=== PATIENT | male | born 1955 | race Caucasian/White ===

== ENCOUNTER → 2017-02-06 | Outpatient (CLI) | payer BC ==
[2017-02-06 17:30] LABS: CH 30.7; CHCM 34.1; HCT 42.2 % (39.0-53.0); HDW 2.76; HGB 14.6 gm/dL (13.0-17.5); MCH 31.3 pg (25.0-35.0); MCHC 34.5 g/dL (31.0-37.0); MCV 90.5 fL (80.0-100.0); Mean Platelet Volume 7.3; RBC 4.67 m/uL (4.30-5.90); WBC 5.1 k/uL (3.8-10.6)
[2017-02-06 19:30] LABS: Erythrocyte Sedimentation Rate 15 mm/hr (0-15)
== END ==
LOC: LABWHC1 16:48
DX: K51.30 Ulcerative (chronic) rectosigmoiditis without complications (principal)
CPT/HCPCS: 36415; 85027; 85652; 86140

== ENCOUNTER → 2017-06-01 | Outpatient (CLI) | payer BC ==
--- NOTE | 2017-06-01 12:04 | EST ---
DATE OF SERVICE: 06/01/2017 TYPE OF REPORT: Stress Cardiolite Scan INDICATION: Tachycardia. BASELINE HEART RATE: 76 BASELINE BLOOD PRESSURE: 124/88 MAXIMUM HEART RATE: 132 MAXIMUM BLOOD PRESSURE: 207/63 85% MPHR: 133 100% MPHR:157 METS: 9.3 MAX STAGE REACHED: III TOTAL EXERCISE TIME: 9 minutes Baseline EKG revealed sinus mechanism with nonspecific ST-T changes and isolated ventricular ectopy. Patient walked for 9 minutes on a standard Kenny protocol. Resting heart rate was 76 beats per minute and peak heart rate was 132 beats per minute, which is almost 85% of predicted maximal. Patient developed fatigue and shortness of breath, but did not have any angina or erythema. EKG did not reveal any ST segment changes to indicate ischemia. However, at peak exercise his blood pressure was 207/63. Isolated PVCs were noted and also a ventricular couplet was noted unassociated with any angina. By EKG criteria, this is a negative stress test with fair exercise capacity and patient achieved almost 85% of predicted maximal. There were minor resting EKG changes to begin with, but overall no ischemic changes were noted at peak exercise. The nuclear scan results, which are more pertinent, will be reported by the radiologist. SELAM
--- NOTE | 2017-06-01 12:20 | NM ---
EXAMINATION TYPE: NM stress cardiolite complete DATE OF EXAM: 06/01/2017 COMPARISON: NONE HISTORY: Tachycardia and syncope TECHNIQUE: After the intravenous administration of 10.3 mCi Tc 99m Sestamibi - Rest images obtained 45 minutes post injection. The patient exercised using a GEORGE protocol and 1 minute prior to peak exercise was injected with 29.4 mCi Tc 99m Sestamibi - Stress images obtained 15 minutes post injecti on. FINDINGS: Targeted heart rate was achieved during performance of the study. Review of stress and rest SPECT river ges demonstrates no distinct perfusion abnormality. Gated analysis shows normal wall motion with an estimated left ventricular ejection fraction of 57 %. IMPRESSION: No scintigraphic evidence for reversible ischemia
== END | disposition home or self-care (01) ==
LOC: RADNMMAIN 08:46
PROVIDERS: ATTEND Family Medicine
DX: I49.3 Ventricular premature depolarization (principal); R94.31 Abnormal electrocardiogram [ECG] [EKG]; R55 Syncope and collapse
CPT/HCPCS: 93017; 78452; A9500

== ENCOUNTER → 2019-08-22 | Outpatient (CLI) | payer BC ==
[2019-08-22 16:12] LABS: HCT 42.2 % (39.0-53.0); HGB 13.6 gm/dL (13.0-17.5); MCH 29.3 pg (25.0-35.0); MCHC 32.3 g/dL (31.0-37.0); MCV 90.9 fL (80.0-100.0); Mean Platelet Volume 6.8; Platelet Count 258 k/uL (150-450); RBC 4.65 m/uL (4.30-5.90); RDW 13.2 % (11.5-15.5); WBC 6.5 k/uL (3.8-10.6)
[2019-08-22 16:25] LABS: Calcium 9.3 mg/dL (8.4-10.2); Potassium 3.6 mmol/L (3.5-5.1); Prothrombin Time 10.3 sec (9.0-12.0)
[2019-08-23 01:06] LABS: Hemoglobin A1C 5.5 % (4.0-6.0)
--- NOTE | 2019-08-23 09:35 | XR ---
EXAMINATION TYPE: XR chest 2V DATE OF EXAM: 08/22/2019 COMPARISON: NONE HISTORY: Shortness of breath TECHNIQUE: Frontal and lateral views of the chest are obtained. FINDINGS: Scattered senescent parenchymal changes noted. Hyperinflation compatible with COPD. No evidence for infiltrate. No evidence for atelectasis. Heart size is stable. Mediastinal structures are stable and grossly unremarkable. No evidence for hilar prominence. Degenerative changes dorsal spine. IMPRESSION: 1. No evidence for acute pulmonary disease.
== END | disposition home or self-care (01) ==
LOC: LABPAT 15:35
PROVIDERS: ATTEND Orthopaedic Surgery Adult Reconstructive Orthopaedic Surgery
DX: Z01.818 Encounter for other preprocedural examination (principal); M25.562 Pain in left knee; M17.12 Unilateral primary osteoarthritis, left knee; Z01.812 Encounter for preprocedural laboratory examination
CPT/HCPCS: 36415; 71046; 80048; 83036; 85027; 85610; 87070; 93005

== ENCOUNTER 2019-09-18 14:37 | Emergency (ER) | payer BC ==
[2019-09-18 15:13] VITALS: BP 149/76; PULSE 52; RESP 16; TEMP 97.9
--- NOTE | 2019-09-18 15:34 | ED ---
General Adult HPI - General Chief complaint: Urogenital Stated complaint: unable to urinate, post surgery Time Seen by Provider: 09/18/19 15:16 Source: patient, RN notes reviewed Mode of arrival: ambulatory Limitations: no limitations - History of Present Illness Initial comments: Patient is a pleasant 64-year-old male presenting to the emergency department for complaints of urinary retention. Patient did have spinal anesthesia yesterday for left knee surgery. Patient states no problems with legs or left knee. Patient does have a history of prostate enlargement. Patient states he is having minimal dysuria. Patient states he has urinary frequency and urgency with only small amounts coming out. Patient does have suprapubic fullness. No fever. No back pain. No history of similar symptoms previously. - Related Data Home Medications Medication Instructions Recorded Confirmed Aspirin [Adult Low Dose Aspirin EC] 81 mg PO DAILY PRN 05/11/16 09/20/17 Cardizem(Dose Unknown) 1 tab PO HS 09/19/17 09/20/17 L.acidoph,Paracasei, B.lactis 1 each PO DAILY 09/19/17 09/20/17 [Probiotic] Levothyroxine Sodium [Synthroid] 175 mcg PO QAM 09/19/17 09/20/17 Multivitamins, Thera [Multivitamin 1 tab PO DAILY 09/19/17 09/20/17 (formulary)] Previous Rx's Medication Instructions Recorded Tamsulosin [Flomax] 0.4 mg PO DAILY #14 cap 09/18/19 Allergies Allergy/AdvReac Type Severity Reaction Status Date / Time No Known Allergies Allergy Verified 09/18/19 15:13 Review of Systems ROS Statement: Those systems with pertinent positive or pertinent negative responses have been documented in the HPI. ROS Other: All systems not noted in ROS Statement are negative. Constitutional: Denies: fever Eyes: Denies: eye pain ENT: Denies: ear pain Respiratory: Denies: cough Cardiovascular: Denies: chest pain Endocrine: Denies: fatigue Gastrointestinal: Reports: as per HPI Genitourinary: Reports: as per HPI, urgency, frequency Musculoskeletal: Denies: back pain Skin: Denies: rash Neurological: Denies: weakness Past Medical History Past Medical History: Osteoarthritis (OA), Prostate Disorder, Thyroid Disorder Additional Past Medical History / Comment(s): ENLARGED PROSTATE, ARTHRITIS KNEES, "heart racing/palpitations during this past summer", had occ blood in stool, colitis, History of Any Multi-Drug Resistant Organisms: None Reported Past Surgical History: Hernia Repair Additional Past Surgical History / Comment(s): THYROID SURG A CHILD. , left knee arthroscopy, PARATHYROID AND THYROID SURGERY AN ADULT. Knee Past Anesthesia/Blood Transfusion Reactions: No Reported Reaction Past Psychological History: No Psychological Hx Reported Smoking Status: Former smoker Past Alcohol Use History: None Reported Past Drug Use History: None Reported - Past Family History Mother Family Medical History: No Reported History General Exam Limitations: no limitations General appearance: alert, in no apparent distress Head exam: Present: normocephalic Eye exam: Present: normal appearance Neck exam: Present: normal inspection Respiratory exam: Present: normal lung sounds bilaterally Cardiovascular Exam: Present: regular rate, normal rhythm GI/Abdominal exam: Present: soft, tenderness (Minimal suprapubic). Absent: guarding, rebound, rigid Extremities exam: Present: other (Left knee bandage and mild swelling) Neurological exam: Present: alert. Absent: motor sensory deficit Expanded Motor strength exam: RLE: 5, LLE: 5 Psychiatric exam: Present: normal affect, normal mood Skin exam: Present: normal color Course Vital Signs 09/18/19 15:11 Temperature 97.9 F Pulse Rate 52 L Respiratory 16 Rate Blood Pressure 149/76 O2 Sat by Pulse 94 L Oximetry Medical Decision Making - Medical Decision Making Patient reevaluated and improved following Yost catheter. Patient updated. - Lab Data Lab Results 09/18/19 Range/Units 15:36 Urine Color Yellow Urine Appearance Clear (Clear) Urine pH 6.0 (5.0-8.0) Ur Specific [place] 1.014 (1.001-1.035) Urine Protein Negative (Negative) Urine Glucose (UA) Negative (Negative) Urine Ketones Negative (Negative) Urine Blood Negative (Negative) Urine Nitrite Negative (Negative) Urine Bilirubin Negative (Negative) Urine Urobilinogen <2.0 (<2.0) mg/dL Ur Leukocyte Esterase Moderate H (Negative) Urine RBC 1 (0-5) /hpf Urine WBC 4 (0-5) /hpf Urine Mucus Rare H (None) /hpf Disposition Clinical Impression: Urinary retention Disposition: HOME SELF-CARE Condition: Stable Instructions (If sedation given, give patient instructions): Urinary Retention in Men (ED) Additional Instructions: Please follow-up with primary care physician in the next couple days for recheck. Please follow-up with urology within the next week regarding retention and catheter. Please follow-up with your surgeon as scheduled. Return for pain, fever, worsening symptoms, weakness, or any other concerns. Prescription has been sent to [facility] Prescriptions: Tamsulosin [Flomax] 0.4 mg PO DAILY #14 cap Is patient prescribed a controlled substance at d/c from ED?: No Referrals: Blanca Ivory MD [Primary Care Provider] - 1-2 days Ronni Gabriel MD [STAFF PHYSICIAN] - 1-2 days Time of Disposition: 16:25
[2019-09-18 15:51] LABS: Appearance,Urine Clear (Clear); Bilirubin,Urine Negative (Negative); Blood,Urine Negative (Negative); Color,Urine Yellow; Glucose,Urine (UA) Negative (Negative); Ketones,Urine Negative (Negative); Leukocyte Esterase,Urine Moderate (Negative); Mucus,Urine Rare /hpf; Nitrite,Urine Negative (Negative); Protein,Urine Negative (Negative); RBC,Urine 1 /hpf (0-5); Specific Gravity,Urine 1.014 (1.001-1.035); Urobilinogen,Urine <2.0 mg/dL (<2.0)
== END 2019-09-18 16:53 | disposition home or self-care (01) ==
LOC: EC 14:37
DX: R33.9 Retention of urine, unspecified (principal); R39.15 Urgency of urination; R35.0 Frequency of micturition; N40.1 Benign prostatic hyperplasia with lower urinary tract symptoms; M79.89 Other specified soft tissue disorders; E07.9 Disorder of thyroid, unspecified; Z79.890 Hormone replacement therapy; Z79.899 Other long term (current) drug therapy; Z87.891 Personal history of nicotine dependence; Z98.890 Other specified postprocedural states
CPT/HCPCS: 51702; 81001; 99284